=== PATIENT | female | born 1950 | race Two or more races ===

== ENCOUNTER 2019-10-12 10:00 | Inpatient (IN) | payer OTHER ==
[~2019-10-12] VITALS: Ht 162.6 cm; Wt 81.6 kg
[2019-10-12] MEDS ORDERED: COZAAR50 MG PO (12:53)
[2019-10-12] MEDS ORDERED: LEVO-T88 MCG PO (12:53)
[2019-10-12] MEDS ORDERED: LIPITOR40 M1 PO (12:53)
[2019-10-12] MEDS ORDERED: METFORMIN HCL500 M3 PO (12:53)
[2019-10-12] MEDS ORDERED: NEURONTIN300 MG PO (12:54)
[2019-10-12] MEDS ORDERED: NAPROXEN500 MG PO (12:54)
[2019-10-20] MEDS ORDERED: OXYC1TAB9 PO (06:29)
[2019-10-20] MEDS ORDERED: INTEGRA PLUS C1 EACH PO (06:29)
[2019-10-20] MEDS ORDERED: XARELTO10 MG PO (06:29)
== END 2019-10-20 18:26 | DRG 470 ==
LOC: O/R 10-18 05:36 → SURG 10-18 05:36 → SURH 10-18 10:00 → O/R 10-18 10:00 → SURH 10-18 10:45 → SURG 10-18 12:02
PROVIDERS: ADMIT Orthopaedic Surgery Sports Medicine; ATTEND Orthopaedic Surgery Sports Medicine
PROC: 0SRC0J9 Replacement of Right Knee Joint with Synthetic Substitute, Cemented, Open Approach (ICD-10-PCS; principal; 2019-10-18 10:45)
DX: M17.11 Unilateral primary osteoarthritis, right knee (principal); I10 Essential (primary) hypertension; E11.9 Type 2 diabetes mellitus without complications; E78.00 Pure hypercholesterolemia, unspecified

== ENCOUNTER 2024-10-25 09:30 | Inpatient (IN) | payer OTHER ==
[~2024-10-25] VITALS: Ht 162.6 cm; Wt 74.8 kg
[~2024-10-25 09:30] MED LIST: COZAAR50 MG PO; INTEGRA PLUS C1 EACH PO; LEVO-T88 MCG PO; LIPITOR40 M1 PO; METFORMIN HCL500 M3 PO; NAPROXEN500 MG PO; NEURONTIN300 MG PO; OXYC1TAB9 PO; XARELTO10 MG PO
[2024-10-25] MEDS ORDERED: GLIPIZIDE XL5 MG PO (10:16)
[2024-10-25 10:27] VITALS: BP 150/83
[2024-10-25 11:35] LABS: RH POSITIVE
[2024-11-01] MEDS ORDERED: LIDOCAINE HCL 1%/EPINEPHRINE 10 ML VIAL IJ ONE (08:45)
[2024-11-01] MEDS ORDERED: ISOPROPYL ALCOHOL 30 ML OUNCE TOP ONE (08:45)
[2024-11-01] MEDS ORDERED: MORPHINE SULFATE 4 MG/ML VIAL IV ONE ×2 (08:45→10:45)
[2024-11-01] MEDS ORDERED: BUPIVACAINE HCL 30 ML VIAL IJ ONE (08:45)
[2024-11-01] MEDS ORDERED: POLYMYXIN B SULFATE 500,000 U VIAL IR ONE (08:45)
[2024-11-01] MEDS ORDERED: KETOROLAC TROMETHAMINE 30 MG VIAL IU ONE (08:45)
[2024-11-01] MEDS ORDERED: TRANEXAMIC ACID 1,000 MG in 0.9 % SODIUM CHLORIDE 100 ML IV ONE (08:45)
[2024-11-01] MEDS ORDERED: VANCOMYCIN HCL 2,000 MG in 0.9 % SODIUM CHLORIDE 250 ML IR ONE (08:45)
[2024-11-01] MEDS ORDERED: CEFAZOLIN SODIUM 2,000 MG in 0.9 % SODIUM CHLORIDE 100 ML IV ONE (08:45)
[2024-11-01] MEDS ORDERED: SODIUM CHLORIDE 0.45 % 1,000 ML IV SCH (10:45)
[2024-11-01] MEDS ORDERED: ONDANSETRON HCL 2 MG/ML VIAL IV PRN (10:45)
[2024-11-01] MEDS ORDERED: MORPHINE SULFATE 4 MG/ML CARTRIDGE IV PRN (10:45)
[2024-11-01] MEDS ORDERED: CEFAZOLIN SODIUM 1,000 MG VIAL IV SCH (12:00)
[2024-11-01 12:11] VITALS: BP 130/76; O2SAT 95
[2024-11-01] MEDS ORDERED: INSULIN LISPRO 1,000 UNIT/10 ML UNITS SUBCUTANEO PRN (12:30)
[2024-11-01] MEDS ORDERED: DEXTROSE 50 % IN WATER 0.5 G/ML VIAL IV PRN (12:30)
[2024-11-01] MEDS ORDERED: VITAMIN D3250 MCG (13:35)
[2024-11-01 17:00] VITALS: BP 123/87; O2SAT 97
[2024-11-01 21:15] VITALS: BP 144/67
[2024-11-02 01:45] VITALS: BP 125/54; O2SAT 91
[2024-11-02] MEDS ORDERED: LEVOTHYROXINE SODIUM 88 MCG TABLET PO SCH (06:00)
[2024-11-02 06:16] LABS: BASO % 0.3 % (0.1-1.2); EOS # 0.02 (0.04-0.54); EOS % 0.2 % (0.7-7.0); LYMPH # 1.40 (1.18-3.74); LYMPH % 16.1 % (19.3-53.1); MEAN PLATELET VOLUME 10.60 fl (9.4-12.4); MONO # 0.90 (0.24-0.82); MONO % 10.4 % (4.7-12.5); NEUT # 6.32 (1.56-6.13); NEUT % 72.9 % (34.0-71.1); RED CELL DISTRIBUTION WIDTH 13.3 % (11.6-14.4)
[2024-11-02 08:08] VITALS: BP 155/81; O2SAT 97
[2024-11-02] MEDS ORDERED: LOSARTAN POTASSIUM 50 MG TABLET PO SCH (09:00)
[2024-11-02] MEDS ORDERED: SENNA/DOCUSATE SODIUM 1 TAB TABLET PO SCH (09:00)
[2024-11-02] MEDS ORDERED: BACITRACIN 28.35 GM OINT.TUBE TOP SCH (09:00)
[2024-11-02] MEDS ORDERED: RIVAROXABAN 10 MG TAB PO SCH (09:00)
[2024-11-02] MEDS ORDERED: ATORVASTATIN CALCIUM 40 MG TABLET PO SCH (09:00)
[2024-11-02] MEDS ORDERED: GLIPIZIDE 5 MG TABLET PO SCH ×2 (09:00)
[2024-11-02] MEDS ORDERED: IRON FUM,PS/FOLIC/BCOMP,C NO.9 1 CAP CAPSULE PO SCH (09:00)
[2024-11-02 12:39] LABS: ALT/SGPT 32.0 U/L (12-78); AST/SGOT 38.0 U/L (15-37); BILIRUBIN TOTAL 1.16 mg/dL (0.3-1.2); BUN CREA RATIO 16.0 (7.0-25.0); CREATININE SERUM 0.77 mg/dL (0.55-1.02); GFR 72.88; GLOBULINA 3.9 G/DL (2.4-3.5); GLUCOSE FASTING 130.0 mg/dL (65-100); OSMOLALITY SERUM 277.0 MOSM/KG (275-295)
[2024-11-02 12:56] LABS: COVID-19 AG NEGATIVE (NEGATIVE)
[2024-11-02] MEDS ORDERED: ACETAMINOPHEN WITH CODEINE 1 UDTAB TABLET PO PRN (13:00)
[2024-11-02] MEDS ORDERED: Septra Ds Tablet PO (15:49)
[2024-11-02] MEDS ORDERED: INTEGRA PLUS C1 EACH PO (15:50)
[2024-11-02] MEDS ORDERED: XARELTO10 MG PO (15:50)
[2024-11-02] MEDS ORDERED: ACETAMINOPHEN-1 EAC2 PO (15:50)
[2024-11-02 17:15] VITALS: BP 174/74; O2SAT 96
[2024-11-02 18:35] VITALS: BP 165/76
[2024-11-02] MEDS ORDERED: ENALAPRILAT DIHYDRATE 2.5 MG/2 ML VIAL IV PRN (19:00)
[2024-11-02] MEDS ORDERED: SULFAMETHOXAZOLE/TRIMETHOPRIM DS 1 TAB PO SCH (21:00)
[2024-11-03 00:51] VITALS: BP 151/78; O2SAT 98
[2024-11-03 06:52] LABS: BASO % 0.2 % (0.1-1.2); EOS # 0.06 (0.04-0.54); EOS % 0.7 % (0.7-7.0); LYMPH # 1.29 (1.18-3.74); LYMPH % 14.3 % (19.3-53.1); MEAN PLATELET VOLUME 10.60 fl (9.4-12.4); MONO # 0.87 (0.24-0.82); MONO % 9.7 % (4.7-12.5); NEUT # 6.72 (1.56-6.13); NEUT % 74.8 % (34.0-71.1); RED CELL DISTRIBUTION WIDTH 13.3 % (11.6-14.4)
[2024-11-03 12:29] VITALS: BP 155/76; O2SAT 96
== END 2024-11-03 14:20 | disposition home or self-care (01) | DRG 470 ==
LOC: SURG 11-01 06:00 → O/R 11-01 06:00 → SURH 11-01 07:00 → SURG 11-01 11:39
PROVIDERS: ADMIT Orthopaedic Surgery Sports Medicine; ATTEND Orthopaedic Surgery Sports Medicine
PROC: 0SRD0J9 Replacement of Left Knee Joint with Synthetic Substitute, Cemented, Open Approach (ICD-10-PCS; principal; 2024-11-01 07:00)
DX: M17.12 Unilateral primary osteoarthritis, left knee (principal); I10 Essential (primary) hypertension; E11.9 Type 2 diabetes mellitus without complications; Z79.4 Long term (current) use of insulin; E03.8 Other specified hypothyroidism; E78.5 Hyperlipidemia, unspecified